=== PATIENT | male | born 1980 | race Two or more races ===

== ENCOUNTER 2024-08-30 15:46 | Emergency (ER) | payer BC, MEDICAID, SELFPAY ==
[2024-08-30 15:46] VITALS: BMI 34.9
[2024-08-30 15:58] VITALS: BP 148/96; PULSE 64; RESP 20; TEMP 37.2; O2SAT 98
--- NOTE | 2024-08-30 15:59 | EKG_ITS ---
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1980 Requested By: Shadi Hinojosa (ADRI) Order Number: [id number] Reading MD: Shadi Hinojosa (FAX MACHINE OPERATOR) Measurements Intervals [place] Rate: 61 P: 28 AK: 148 QRS: -18 QRSD: 88 T: 31 QT: 387 QTc: 393 Interpretive Statements SINUS RHYTHM LOW QRS VOLTAGE IN PRECORDIAL LEADS [QRS DEFLECTION < 1.0 mV IN CHEST LEADS] MINIMAL VOLTAGE CRITERIA FOR LVH, CONSIDER NORMAL VARIANT [MEETS CRITERIA IN ONE OF: R(aVL), S(V1), R(V5), R(V5/V6)+S(V1)] POSSIBLE ANTERIOR MYOCARDIAL INFARCTION , OF INDETERMINATE AGE [30 ms Q WAVE IN V3/V4, OR R < 0.2 mV IN V4] No previous ECG available for comparison /store/S0/[id number]
--- NOTE | 2024-08-30 15:59 | PD.EDRME ---
Rapid Medical Screening Exam RME Arrival date/time: 08/30/24 15:46 44-year-old male presents to the emergency department complaints of chest pain worse with movement Chief Complaint: Chest Pain Time Seen by Provider: 08/30/24 15:50
--- NOTE | 2024-08-30 16:15 | XR_ITS ---
Examination: PA lateral chest 2 views TECHNIQUE: Upright PA lateral chest 2 views Exam date and time: August 30, 2024 1610 hours INDICATIONS: Chest pain beginning 2 days ago FINDINGS: Normal heart size No pneumonia or pulmonary edema Intact osseous structures IMPRESSION: No active disease
[2024-08-30 16:45] LABS: Basophils # (Auto) 0.1 Thou/mm3 (0.0-0.2); Basophils % (Auto) 1 % (0-2.5); Eosinophils # (Auto) 0.8 Thou/mm3 (0.0-0.5); Eosinophils % (Auto) 8 % (0-10); Hematocrit 42.9 % (41.0-53.0); Hemoglobin 15.5 g/dL (13.5-16.0); Immature Granulocytes % (Auto) 1 % (0-0); Immature Granulocytes Auto 0.05 Thou/mm3 (0.00-0.00); Lymphocytes # (Auto) 2.7 Thou/mm3 (1.0-4.8); Lymphocytes % (Auto) 27 % (10-50); Mean Corpuscular HGB Conc 36.1 g/dl (31.0-37.0); Mean Corpuscular Hemoglobin 28.5 pg (25.0-35.0); Mean Corpuscular Volume 79 fL (80-100); Monocytes # (Auto) 0.8 Thou/mm3 (0.0-0.8); Monocytes % (Auto) 8 % (0-12); Neutrophils # (Auto) 5.6 Thou/mm3 (1.8-7.7); Neutrophils % (Auto) 56 % (37-80); Platelet Count 226 Thou/mm3 (140-440); Red Blood Count 5.43 Miln/mm3 (4.50-5.90); White Blood Count 10.2 Thou/mm3 (3.8-10.6)
[2024-08-30 16:46] LABS: Nucleated Red Blood Cell % 0 /100 WBC (0)
[2024-08-30 17:06] LABS: Alanine Aminotransferase 53 U/L (10-49); Albumin, Serum 4.7 gm/dL (3.5-5.0); Albumin/Globulin Ratio 1.8 (1.2-2.2); Alkaline Phosphatase 102 U/L (46-116); Anion Gap 8 (7-16); Aspartate Amino Transferase 28 U/L (0-34); BUN/Creatinine Ratio 9 Ratio (12-20); Bilirubin,Total 0.4 mg/dL (0.3-1.2); Blood Urea Nitrogen 8 mg/dL (9-23); Calcium 9.4 mg/dL (8.3-10.6); Calcium (Corrected) 9.4 mg/dL (8.5-10.1); Carbon Dioxide 25.6 mMol/L (20.0-31.0); Chloride 106 mMol/L (98-107); Creatinine (Component) 0.9 mg/dL (0.6-1.3); Estimated Creatinine Clearance 123.9 mL/min (>60); Globulin 2.6 gm/dL (2.3-3.5); Glucose 99 mg/dL (74-106); Lipase 38 U/L (12-53); Osmolality,Calculated 277 (275-295); Potassium 3.7 mMol/L (3.4-5.1); Sodium 140 mMol/L (136-145); Total Protein 7.3 gm/dL (5.7-8.2); Troponin I < 0.002 ng/mL (0.0-0.045); eGFR > 60 See Note
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
[2024-08-30 18:30] VITALS: BP 140/90; PULSE 71; RESP 16; TEMP 36.8; O2SAT 96
--- NOTE | 2024-08-30 20:08 | PC.NURSE ---
PT WAS CALLED AT 1930 AND 1949 AND NO ANSWER AT THAT TIME, PT WAS ALSO CALLED JUST NOW AND NO ANSWER.
== END 2024-08-30 20:18 | disposition left against medical advice (07) ==
PROVIDERS: Nurse Practitioner Primary Care; Emergency Provider Emergency Medicine; PCP Family Medicine
DX: R07.89 Other chest pain (principal)
CPT/HCPCS: 36415; 71046; 80053; 83690; 84484; 85025; 93005; 99281

== ENCOUNTER 2025-08-17 20:16 | Emergency (ER) | payer BC, MEDICAID, SELFPAY ==
[2025-08-17 20:17] VITALS: BMI 38.8
--- NOTE | 2025-08-17 20:19 | EKG_ITS ---
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1980 Requested By: ED Temporary Provider Order Number: [id number] Reading MD: ED Temporary Provider Measurements Intervals [place] Rate: 97 P: 25 AK: 137 QRS: -29 QRSD: 89 T: 0 QT: 336 QTc: 428 Interpretive Statements SINUS RHYTHM MODERATE VOLTAGE CRITERIA FOR LVH, CONSIDER NORMAL VARIANT [MEETS CRITERIA IN ONE OF: R(aVL), S(V1), R(V5), R(V5/V6)+S(V1)] POSSIBLE ANTERIOR MYOCARDIAL INFARCTION , PROBABLY OLD [30 ms Q WAVE IN V3/V4, OR R < 0.2 mV IN V4] INFERIOR MYOCARDIAL INFARCTION , PROBABLY OLD [40+ ms Q WAVE AND/OR ST/T ABNORMALITY IN II/aVF] Compared to ECG 08/30/2024 16:01:46 No significant changes /store/S0/[id number]/[id number].pdf
[2025-08-17 20:47] VITALS: BP 166/110; PULSE 104; RESP 20; TEMP 36.9; O2SAT 96
--- NOTE | 2025-08-17 20:57 | EDRME_ITS ---
Rapid Medical Screening Exam [facility] Arrival date/time: 08/17/25 20:16 45M with history of HTN and previous smoker presents to ED with several days of cough, SOB, fevers/chills, and CP. Chief Complaint: Chest Pain Vital signs: Vital Signs Temperature 98.4 F 08/17/25 20:47 Pulse Rate 104 H 08/17/25 20:47 Respiratory Rate 20 08/17/25 20:47 Blood Pressure 166/110 H 08/17/25 20:47 Pulse Oximetry (%) 96 08/17/25 20:47 Oxygen Delivery Method Room Air 08/17/25 20:47 Exam: Wheezing in lungs. Clinical Impression: asthma/COPD exacerbation vs CAP vs URI vs CHF
--- NOTE | 2025-08-17 20:57 | XR_ITS ---
EXAMINATION: PA lateral chest 2 views TECHNIQUE: Upright PA lateral chest 2 views Date and time: August 17, 2025, 2053 hours, comparison August 30, 2024 INDICATION: Shortness of breath chest pain today. FINDINGS: Normal heart size Lungs are clear. Osseous structures are intact IMPRESSION: No active disease
[2025-08-17 21:33] LABS: Basophils # (Auto) 0.1 Thou/mm3 (0.0-0.2); Basophils % (Auto) 1 % (0-2.5); Eosinophils # (Auto) 1.0 Thou/mm3 (0.0-0.5); Eosinophils % (Auto) 9 % (0-10); Hematocrit 43.7 % (41.0-53.0); Hemoglobin 15.3 g/dL (13.5-16.0); Immature Granulocytes Auto 0.08 Thou/mm3 (0.00-0.00); Lymphocytes # (Auto) 2.9 Thou/mm3 (1.0-4.8); Lymphocytes % (Auto) 26 % (10-50); Mean Corpuscular HGB Conc 35.0 g/dl (31.0-37.0); Mean Corpuscular Hemoglobin 28.3 pg (25.0-35.0); Mean Corpuscular Volume 81 fL (80-100); Monocytes # (Auto) 1.4 Thou/mm3 (0.0-0.8); Monocytes % (Auto) 13 % (0-12); Neutrophils # (Auto) 5.5 Thou/mm3 (1.8-7.7); Neutrophils % (Auto) 50 % (37-80); Nucleated Red Blood Cell # 0.00 Thou/mm3 (0.00-0.00); Nucleated Red Blood Cell % 0 /100 WBC (0); Platelet Count 210 Thou/mm3 (140-440); RDW Standard Deviation 38.5 fL (35.1-43.9); Red Blood Count 5.41 Miln/mm3 (4.50-5.90); White Blood Count 11.1 Thou/mm3 (3.8-10.6)
[2025-08-17 21:51] LABS: B-Type Natriuretic Peptide < 20 pg/mL (0-100)
[2025-08-17 21:52] LABS: Alanine Aminotransferase 118 U/L (10-49); Albumin, Serum 4.9 gm/dL (3.5-5.0); Albumin/Globulin Ratio 1.6 (1.2-2.2); Alkaline Phosphatase 94 U/L (46-116); Anion Gap 10 (7-16); Aspartate Amino Transferase 84 U/L (0-34); BUN/Creatinine Ratio 17 Ratio (12-20); Bilirubin,Total 0.6 mg/dL (0.3-1.2); Blood Urea Nitrogen 12 mg/dL (9-23); Calcium 9.6 mg/dL (8.3-10.6); Calcium (Corrected) 9.6 mg/dL (8.5-10.1); Carbon Dioxide 24.0 mMol/L (20.0-31.0); Chloride 106 mMol/L (98-107); Creatinine (Component) 0.7 mg/dL (0.6-1.3); Estimated Creatinine Clearance 161.3 mL/min (>60); Globulin 3.0 gm/dL (2.3-3.5); Glucose 94 mg/dL (74-106); Osmolality,Calculated 279 (275-295); Potassium 3.9 mMol/L (3.4-5.1); Sodium 140 mMol/L (136-145); Total Protein 7.9 gm/dL (5.7-8.2); Troponin I < 0.020 ng/mL (0.0-0.045); eGFR > 60 See Note
[2025-08-17] MEDS: ALBUTEROL/IPRATROPIUM (Duoneb) RT SOL 3 ML NEBU 6 ML INH (21:56)
[2025-08-17 21:57] VITALS: PULSE 96; RESP 16; O2SAT 99
--- NOTE | 2025-08-17 22:25 | EDNOTE_ITS ---
ED Chest Pain RME/HPI General Chief Complaint: Chest Pain Stated Complaint: CHEST PAIN SOB, COUGH, FEVER Time Seen by Provider: 08/17/25 22:23 Arrival date/time: 08/17/25 20:16 RME / HPI RME / HPI narrative: 08/17/25 20:16 45M with history of HTN and previous smoker presents to ED with several days of cough, SOB, fevers/chills, and CP. Dr. Winston?s Main ED Evaluation: 45yo male who was on antibiotics 2-3 weeks [employer]. [employer] for suspected bronchitis with transient improvement now presenting with right upper precordial chest pain with occasional harsh wheezes and ongoing cough. Notes a pleuritic component. Denies palpitations, but does report mild shortness of breath and generalized body aches. Denies any infectious exposures. Reports associated generalized fatigue and nasal congestion. No reported sore throat. Patient does have rare tobacco and binge alcohol consumption. Cardiac Risk Factors: No DM, HTN, family history of heart disease. + HTN and occasional tobacco use. Related Data Previous Rx's ?Medication ?Instructions ?Recorded sulfamethoxazole 800 1 tab PO BID #10 tabs mg-trimethoprim 160 mg tablet (Bactrim DS) diazepam 2 mg tablet (Valium) 2 mg PO BID PRN muscle s pasm #6 11/13/21 tabs hydrocodone 5 mg-acetaminophen 325 1 tab PO Q8H PRN pa in #10 tabs 11/13/21 mg tablet albuterol sulfate 90 mcg/actuation 2 puff inhalation Q 6H PRN 08/17/25 aerosol inhaler (Ventolin HFA) shortness of breath or wheezing #8.5 grams aspirin 81 mg chewable tablet 81 mg PO QDAY #30 tabs 1 10/18/24 codeine 10 mg-guaifenesin 100 mg/5 5 ml PO Q6H PRN cou gh #120 mL 08/17/25 mL oral liquid doxycycline monohydrate 100 mg 100 mg PO BID #20 caps 08/17/25 capsule prednisone 20 mg tablet 40 mg PO QDAY 5 days #10 tab s 08/17/25 Allergies Allergy/AdvReac Type Severity Reaction Status Date / Time No Known Allergies Allergy Verified 08/17/25 20:17 Review of Systems Review of Systems Systems Reviewed: All systems reviewed, normal except as documented Past Medical History Social History SMOKING STATUS: Current some day smoker SUBSTANCE USE: does not use ED Exam Narrative Physical exam: GENERAL APPEARANCE: alert and oriented x 4, well-developed, well-nourished, nontoxic, complains of mild right precordial chest pain, no acute distress VITALS: All vitals were reviewed and the pulse ox is 99% on room air, which is normal according to my interpretation. HEENT: Normocephalic, atraumatic; pupils equal, round, reactive to light; EOMI; mucous membranes pink, moist; oropharynx clear NECK: Supple LUNGS: coarse harsh breath sounds throughout both lower lung [place] with rales at the left base HEART: Regular rate, regular rhythm; normal S1, S2; no murmurs ABDOMEN: non distended; normal BS; soft, no tenderness, no guarding, no rebound; no masses, no organomegaly, no hernia BACK: no CVA tenderness EXTREMITIES: atraumatic; no edema NEUROLOGIC: awake; alert and oriented x4; cranial nerves II-XII grossly intact; no focal sensory or motor deficits PSYCHIATRIC: appropriate mood and affect SKIN: warm, dry, normal color; no rashes Course Course Course Narrative: CXR is ordered for determining the etiology of chest pain. Quality Measures none Orders Category Date Time Status EKG (ED ONLY) *Do not use* NOW Care 08/17/25 20:19 Completed EKG (ED Only) Stat Exams 08/17/25 20:19 Draft XR chest 2V Stat Exams 08/17/25 20:57 Completed B-Type Natriuretic Peptide Stat Lab 08/17/25 21:07 Completed CBC Stat Lab 08/17/25 21:07 Completed COVID-19 Antigen (In-House) Stat Lab 08/17/25 21:43 Received Comprehensive Metabolic Panel Stat Lab 08/17/25 21:07 Completed Influenza A & B Rapid Panel Stat Lab 08/17/25 21:43 Received Troponin I Stat Lab 08/17/25 21:07 Completed Albuterol/Ipratr Rt Tova [Duoneb Rt Tova] Med 08/17/25 22:37 Discontinued 3 ml INH X1 ONE Albuterol/Ipratr Rt Tova [Duoneb Rt Tova] Med 08/17/25 20:56 Discontinued 6 ml INH X1 ONE dexAMETHasone INJ [Decadron Inj] Med 08/17/25 20:56 Discontinued 10 mg PO X1 ONE predniSONE Med 08/17/25 20:56 Discontinued 40 mg PO X1 ONE Vital Signs Vital signs: Vital Signs Temperature 98.4 F 08/17/25 20:47 Pulse Rate 104 H 08/17/25 20:47 Respiratory Rate 20 08/17/25 20:47 Blood Pressure 166/110 H 08/17/25 20:47 Pulse Oximetry (%) 96 08/17/25 20:47 Oxygen Delivery Method Room Air 08/17/25 20:47 Chest Pain MDM Narrative MDM Narrative:: Scribe Attestation: 08/17/25 - Yanet Lee am scribing for and in the presence of Dr. Winston. 45yo male who was on antibiotics 2-3 weeks [employer]. [employer] for suspected bronchitis with transient improvement now presenting with right upper precordial chest pain with occasional harsh wheezes and ongoing cough. Notes a pleuritic component. Lab markers demonstrate marginally elevated WBC count of 11.1, no anemia or thrombocytopenia, slight monocytosis, and no bandemia. Chemistries are unremarkable. UA without UTI. CXR no pneumothorax, infiltrate, or effusion. Patient treated with both oral and IM steroids, serial nebulizer treatments, and underwent basic cardiac work-up. Troponin undetected. EKG withou acute ischemia, infarction, or pericarditis. Patient will be placed on a short course of steroids, a second course of antibiotics, and antitussive with Codeine. Chest pain is atypical and likely related to pleural inflammation. Given evidence of prior anterior wall ID, will recommend daily aspirin and outpatient referral for stress test from cardiology. Close follow-up recommended. Precaution instructions issued. Dx: nonspecific chest pain, bronchitis with bronchospasm Patient data External records reviewed:: [facility] previous records (Per chart review, patient was seen here on 08/30/24 for atypical chest pain.) Clinical information provided by:: patient Social determinants that could affect healthcare access:: substance use (history of tobacco use) Patient has the following chronic illnesses:: HTN How is presenting disease/condition affected by chronic disease/condition?: uneffected by Evaluation data The following diagnostics were reviewed and interpreted by me:: lab results, radiology exam(s) and EKG tracing(s) Lab and/or radiology exams considered but not ordered:: none Interpretation Summary: EKG done at 2045, sinus rhythm, rate of 97, no acute pathological ST segment changes, no ectopy, normal intervals, left axis deviation, according to my interpretation. [facility] Report Signed Patient: AGATHA KUMAR Record#: [id number] Birthdate: 1980 Age/Sex: 45 / M Location: [facility] Attending Dr: Ordering Physician: Arturo Pratt PA-C Date of Service: 08/17/25 Procedure(s): XR chest 2V Accession Number(s): [id number] cc: Bruno Gipson MD; Arturo Pratt PA-C~ EXAMINATION: PA lateral chest 2 views TECHNIQUE: Upright PA lateral chest 2 views Date and time: August 17, 2025, 2053 hours, comparison August 30, 2024 INDICATION: Shortness of breath chest pain today. FINDINGS: Normal heart size Lungs are clear. Osseous structures are intact IMPRESSION: No active disease Dictated By: Bruno Gipson MD Signed By: <Electronically signed by Bruno Gipson MD in OV> 08/17/252125 Medications / Prescriptions Medications or Prescriptions considered but not ordered:: none Medication administrations:: Medication Administration History Discontinued Medications Albuterol/Ipratropium (Albuterol/Ipratropium (Duoneb) Rt Tova 3 Ml Nebu) 6 ml INH X1 ONE Stop: 08/17/25 20:57 Last Admin: 08/17/25 21:56 Dose: 6 ml Documented By: Albuterol/Ipratropium (Albuterol/Ipratropium (Duoneb) Rt Tova 3 Ml Nebu) 3 ml INH X1 ONE Stop: 08/17/25 22:38 Dexamethasone Sodium Phosphate (Dexamethasone Sod Phos Inj 10 Mg/Ml Vial) 10 mg PO X1 ONE Stop: 08/17/25 20:57 Last Admin: 08/17/25 21:57 Dose: 10 mg Documented By: JOANNE Prednisone (Prednisone 20 Mg Tablet) 40 mg PO X1 ONE Stop: 08/17/25 20:57 Last Admin: 08/17/25 21:58 Dose: 40 mg Documented By: JOANNE see above Consultations Consultation(s) initiated? (list below): No Diagnosis Chest Pain Differential Diagnosis: pneumothorax, atypical chest pain, st elevation myocardial infarction, costochondritis and other (NSTEMI) Most likely diagnosis given after review of the tests above:: see clinical impression below Admission Indicated Admission indicated?: not indicated Admission Request Was there a request for admission?: No Disposition Plan Disposition Plan: Discharge Discharge Attestation Discharge Attestation: The patient and all family members were given an opportunity to ask questions and understood the discharge instructions. Discharge instructions specifically effects, indications for sooner follow up or return to the emergency department, and the expected course of current diagnosis. Patient condition: Stable Discharge Plan Plan Patient Disposition: HOME (Self Care) Discharge Disposition comment: Stable Prescriptions/Referrals Prescriptions/Med Rec: New doxycycline monohydrate 100 mg capsule 100 mg PO BID Qty: 20 0RF codeine-guaifenesin 10-100 mg/5 mL liquid 5 ml PO Q6H PRN (Reason: cough) Qty: 120 0RF albuterol sulfate [Ventolin HFA] 90 mcg/actuation HFA aerosol inhaler 2 puff inhalation Q6H PRN (Reason: shortness of breath or wheezing) Qty: 8.5 0RF prednisone 20 mg tablet 40 mg PO QDAY 5 Days Qty: 10 0RF Taper: Prednisone Taper 40 mg DAILY for 5 Days and 0 Hour aspirin 81 mg tablet,chewable 81 mg PO QDAY Qty: 30 0RF No Action sulfamethoxazole-trimethoprim [Bactrim DS] 800-160 mg tablet 1 tab PO BID Qty: 10 0RF diazepam [Valium] 2 mg tablet 2 mg PO BID PRN (Reason: muscle spasm) Qty: 6 0RF hydrocodone-acetaminophen 5-325 mg tablet 1 tab PO Q8H MDD 3 PRN (Reason: pain) Qty: 10 0RF Problem List Clinical Impression: Acute bronchitis with bronchospasm Impression comment: Acute bronchitis with bronchospasm Patient/Caregiver Discharge Instructions Discharge Activity: activity as tolerated Diet Instructions: Force fluids Education Materials: ED Bronchitis with Wheezing (Adult) Additional Instructions: Medication as directed. Utilize inhaler every 4 hours while awake. Follow-up with primary care doctor in 1 to 2 weeks and return for worsening symptoms i.e. progressive shortness of breath persistently high fevers vomiting or worsening illness. Print Language: Arabic Stand Alone Forms: Usha Award Info., Patient Portal Info Letter
[2025-08-17 23:21] LABS: COVID-19 Antigen (In-House) Negative (Negative); Influenza A Ag Negative; Influenza B Ag Negative
[2025-08-17] MEDS: ALBUTEROL/IPRATROPIUM (Duoneb) RT SOL 3 ML NEBU INH (23:22)
[2025-08-17 23:24] VITALS: PULSE 97; RESP 19; O2SAT 99
== END 2025-08-17 23:55 | disposition home or self-care (01) ==
LOC: SERX 23:55
PROVIDERS: Physician Assistant; Emergency Provider Emergency Medicine; PCP Family Medicine
DX: J20.9 Acute bronchitis, unspecified (principal); F17.210 Nicotine dependence, cigarettes, uncomplicated; R94.31 Abnormal electrocardiogram [ECG] [EKG]; I10 Essential (primary) hypertension
CPT/HCPCS: 36415; 71046; 80053; 83880; 84484; 85025; 87502; 87811; 93005; 94640; 99284; A9270; J1100; J7512

== ENCOUNTER → 2025-08-21 | Outpatient (CLI) | payer BC, MEDICAID, SELFPAY ==
[2025-08-21 14:04] LABS: Amylase 47 U/L (30-118); Lipase 30 U/L (12-53)
[2025-08-21 14:36] LABS: Hepatitis A Antibody IgM Non Reactive (Non React); Hepatitis B Core Antibody IgM Non Reactive (Non React); Hepatitis B Surface Antigen Non Reactive (Non React); Hepatitis C Antibody Non Reactive (Non React)
[2025-08-21 15:38] LABS: Cocci Serology, IgM Negative (Negative)
[2025-08-23 11:03] LABS: Cocci Serology, IgG Negative (Negative)
== END | disposition home or self-care (01) ==
LOC: COPL 12:10
PROVIDERS: PCP Family Medicine; Referring Provider Family Medicine; Visit Provider Family Medicine
DX: R74.01 Elevation of levels of liver transaminase levels (principal); R10.13 Epigastric pain; R50.9 Fever, unspecified
CPT/HCPCS: 36415; 80074; 82150; 83690; 86331; 86635